=== PATIENT | male | born 1985 | race Caucasian/White ===

== ENCOUNTER 2017-06-17 11:24 | Inpatient (IN) | payer OTHER ==
[~2017-06-17 11:24] MED LIST: Ketorolac Tromethamine 30 MG/ML VIAL ONE; Lidocaine 1% PF 5 ML VIAL ONE; PHENYLEPHRINE-NS 100 MCG/ML 10 ML SYRINGE ONE; PROPOFOL 200 MG/20 ML VIAL ONE
[2017-06-17 11:59] LABS: #Eosinphils 0.2 thou/uL (0.0-0.7); #Lymphocytes 1.3 thou/uL (1.20-3.40); #Monocytes 1.1 thou/uL (0.11-0.59); #Neutrophils 10.1 thou/uL (1.40-6.50); %Basophils 0.4 % (0.0-1.0); %Eosinophils 1.4 % (0.0-10.0); %Lymphocytes 10.3 % (21.0-51.0); %Monocytes 8.8 % (0.0-10.0); %Neutrophils 79.1 % (42.0-75.0); Hemoglobin 17.4 g/dL (14.0-18.0); Mean Corpuscular HGB CONC 33.3 g/dL (32.0-36.0); Mean Corpuscular Hemoglobin 31.6 pg (27.0-31.0); Mean Corpuscular Volume 94.7 fl (80.0-94.0); Mean Platelet Volume 7.6 fL (7.4-10.4); Platelet Count 140 thou/uL (130-400); RBC Distribution Width 11.8 % (11.5-14.5); Red Blood Cell (RBC) Count 5.49 mill/uL (4.70-6.10); White Blood Cell (WBC) Count 12.8 thou/uL (4.8-10.8)
[2017-06-17] MEDS ORDERED: Ondansetron HCl/PF 4 MG/2 ML Vial ONE (12:16)
[2017-06-17] MEDS ORDERED: Morphine 4 MG/ML VIAL ONE (12:16)
[2017-06-17 12:28] LABS: ALT (SGPT) 52 U/L (8-55); AST (SGOT) 45 U/L (5-34); Albumin 4.4 g/dL (3.5-5.0); Alkaline Phosphatase 45 U/L (40-150); Anion Gap 14 mmol/L (10-20); BUN (Urea Nitrogen) 11 mg/dL (8.9-20.6); Bilirubin, Total 1.3 mg/dL (0.2-1.2); Calc. Creatinine Clearance 0 mL/min (70-130); Calcium 9.4 mg/dL (7.8-10.44); Carbon Dioxide 27 mmol/L (22-29); Chloride 102 mmol/L (98-107); Estimated GFR-MDRD 77; Glucose 119 mg/dL (70-105); Lipase 13 U/L (8-78); Potassium 4.7 mmol/L (3.5-5.1); Protein, Total 7.4 g/dL (6.0-8.3); Sodium 138 mmol/L (136-145)
[2017-06-17 12:29] LABS: Bilirubin Negative (Negative); Blood, Urine Negative (Negative); Clarity CLEAR (Clear); Glucose, Urine (Dipstick) Negative (Negative); Leukocyte Negative (Negative); Nitrite Negative (Negative); Protein, Urine (Dipstick) Negative (Neg-Trace); Specific Gravity, Urine 1.011 (1.002-1.036); pH, Urine 7.5 (5.0-9.0)
[2017-06-17] MEDS ORDERED: cefOXitin 2 GM, Syringe 1 ML in Sterile Water 10 ML SLOW IVP SCH (12:30)
[2017-06-17] MEDS ORDERED: Acetaminophen 500 MG TAB ONE (12:40)
[2017-06-17] MEDS ORDERED: Bupivacaine/Epinephrine 0.25% 30 ML VIAL ONE (13:05)
[2017-06-17] MEDS ORDERED: Midazolam HCl 2 mg/2 ml Vial ONE (13:10)
[2017-06-17] MEDS ORDERED: Fentanyl 250 MCG/5 ML VIAL ONE (13:10)
--- NOTE | 2017-06-17 13:50 | HP ---
CHIEF COMPLAINT: Right lower quadrant abdominal pain. HISTORY OF PRESENT ILLNESS: The patient is a 31-year-old male with 24-hour history of progressive ri ght lower quadrant pain associated with nausea, vomiting, chills, fever, and rigors. No previous epi sodes. PAST MEDICAL HISTORY: Otherwise, healthy. PAST SURGICAL HISTORY: None. MEDICATIONS: None. ALLERGIES: He has an allergy to PENICILLIN. SOCIAL HISTORY: He is single. He works in IT. Occasional alcohol, no tobacco. FAMILY HISTORY: Diabetes. PHYSICAL EXAMINATION: VITAL SIGNS: Pulse 109 and blood pressure 130/76. GENERAL: He is awake, having chills. HEENT: Otherwise, unremarkable. LUNGS: Clear. HEART: Regular rate and rhythm. ABDOMEN: Soft, very tender to percussion in right lower quadrant, no palpable masses. EXTREMITIES: Unremarkable. LABORATORY DATA: White count 12.9. ASSESSMENT: Acute appendicitis. PLAN: Laparoscopic appendectomy. CONSENT: I have discussed the planned procedure as well as risk of bleeding, infection, injury to narciso wel, bladder, need to open. He understands and gives informed consent.
[2017-06-17] MEDS ORDERED: HYDROcodone/Acetaminophen 10/325 mg Tablet PO PRN (14:26)
[2017-06-17] MEDS ORDERED: Promethazine HCl 25 MG/ML VIAL IM PRN ×2 (14:26→14:40)
[2017-06-17] MEDS ORDERED: hydrALAZINE 20 MG/ML VIAL SLOW IVP PRN (14:26)
[2017-06-17] MEDS ORDERED: Dextrose 5% in Water 1,000 ML IV PRN (14:26)
[2017-06-17] MEDS ORDERED: Dextrose 50% Abboject 50 ML SYRINGE SLOW IVP PRN (14:26)
[2017-06-17] MEDS ORDERED: Morphine 4 MG/ML Carpuject SLOW IVP PRN (14:26)
[2017-06-17] MEDS ORDERED: Ondansetron HCl/PF 4 MG/2 ML Vial IVP PRN ×2 (14:26→14:40)
[2017-06-17] MEDS ORDERED: Promethazine HCl 25 MG/ML VIAL SLOW IVP PRN (14:40)
[2017-06-17 15:50] VITALS: BMI 28.0
[2017-06-17] MEDS: D5 1/2 NS w/20 mEq KCL 1,000 ML IV SCH (16:17)
[2017-06-17] MEDS: HYDROcodone/Acetaminophen 10/325 mg Tablet PO PRN (16:24)
[2017-06-17] MEDS ORDERED: Levofloxacin 500 mg/D5W 100 ml Premix Bag IVPB SCH (17:00)
--- NOTE | 2017-06-17 17:02 | OP ---
PREOPERATIVE DIAGNOSIS: Acute appendicitis. SURGEON: Jeffery Valdivia M.D. PROCEDURE PERFORMED: Laparoscopic appendectomy. INDICATIONS: A 31-year-old male who presented with a 24-hour history of right lower quadrant pain, n ausea, vomiting, chills, and fever, leukocytosis. FINDINGS: Acute gangrenous appendicitis. PROCEDURE IN DETAIL: After informed consent was obtained, the patient was taken to the operating talita m and given general endotracheal anesthesia, placed in the supine position. The abdomen was prepped and draped in usual fashion. Local anesthesia infiltrated subcutaneously and deep. A subumbilical i ncision was performed. The subcu divided sharply. The fascia grasped two stay sutures of 0 Vicryl p laced to either side of midline. Midline incised. Digital palpation revealed no local adhesions. A blunt 10/12 mm trocar inserted. Pneumoperitoneum was created to a pressure of 15 mmHg. Zero degree laparoscope inserted under direct vision, two 5 mm ports placed, one suprapubic and one right latera l abdomen. The appendix was found. It was gangrenous, but there is really no purulent fluid around it. The mesoappendix was divided utilizing the LigaSure. The base of the appendix was divided utili zing the linear 45-mm white load stapler. The appendix was placed in an Endosac and removed from the abdomen through the umbilical incision and in the Endosac. The pelvis was inspected. There was no purulent fluid. The area was irrigated and irrigation fluid removed. Trocars and retractors removed . The fascia closed with interrupted 0 Vicryl suture. The skin closed with interrupted 4-0 Rapide. Dermabond applied. The patient tolerated the procedure well and was transferred to recovery in good condition. Sponge and needle count verified correct x2.
[2017-06-17] MEDS: Ketorolac Tromethamine 30 MG/ML VIAL IVP SCH (17:06)
[2017-06-17] MEDS ORDERED: Acetaminophen 1,000 MG in Premix Bag 1 BAG IVPB PRN (19:30)
[2017-06-17] MEDS ORDERED: Famotidine/PF 20 mg/2ml Vial SLOW IVP SCH (21:00)
[2017-06-17] MEDS: Famotidine 20 MG TAB PO SCH (21:26)
[2017-06-17] MEDS ORDERED: Morphine 4 MG/ML VIAL SLOW IVP PRN ×2 (21:26→21:28)
[2017-06-17] MEDS: metroNIDAZOLE 500 MG in Premix Bag 1 BAG IVPB SCH (21:26)
[2017-06-18 00:08] VITALS: TEMP 97.8
[2017-06-18] MEDS: Ketorolac Tromethamine 30 MG/ML VIAL IVP SCH ×2 (00:15→06:51)
[2017-06-18] MEDS: D5 1/2 NS w/20 mEq KCL 1,000 ML IV SCH (00:20)
[2017-06-18] MEDS: HYDROcodone/Acetaminophen 10/325 mg Tablet PO PRN ×2 (00:23→04:29)
[2017-06-18 05:10] LABS: Anion Gap 9 mmol/L (10-20); BUN (Urea Nitrogen) 16 mg/dL (8.9-20.6); Calc. Creatinine Clearance 103 mL/min (70-130); Calcium 8.7 mg/dL (7.8-10.44); Carbon Dioxide 28 mmol/L (22-29); Chloride 102 mmol/L (98-107); Estimated GFR-MDRD 62; Glucose 212 mg/dL (70-105); Potassium 4.7 mmol/L (3.5-5.1); Sodium 134 mmol/L (136-145)
[2017-06-18 05:21] LABS: #Lymphocytes 0.8 thou/uL (1.20-3.40); #Monocytes 0.8 thou/uL (0.11-0.59); #Neutrophils 11.3 thou/uL (1.40-6.50); %Basophils 0.1 % (0.0-1.0); %Eosinophils 0.1 % (0.0-10.0); %Lymphocytes 5.8 % (21.0-51.0); Hemoglobin 14.6 g/dL (14.0-18.0); Mean Corpuscular HGB CONC 34.1 g/dL (32.0-36.0); Mean Corpuscular Hemoglobin 33.8 pg (27.0-31.0); Mean Corpuscular Volume 99.2 fl (80.0-94.0); Mean Platelet Volume 8.2 fL (7.4-10.4); Platelet Count 104 thou/uL (130-400); RBC Distribution Width 11.9 % (11.5-14.5); Red Blood Cell (RBC) Count 4.32 mill/uL (4.70-6.10); White Blood Cell (WBC) Count 12.9 thou/uL (4.8-10.8)
[2017-06-18] MEDS: metroNIDAZOLE 500 MG in Premix Bag 1 BAG IVPB SCH (06:52)
[2017-06-18 07:30] VITALS: BP 107/42
[2017-06-18] MEDS: Famotidine 20 MG TAB PO SCH (07:53)
[2017-06-18] MEDS ORDERED: Enoxaparin Sodium 40 MG/0.4 ML SYRINGE SC SCH (09:00)
--- NOTE | 2017-06-18 09:21 | DIS ---
DISCHARGE DIAGNOSIS: Acute gangrenous appendicitis. PROCEDURES DURING ADMISSION: Laparoscopic appendectomy. HOSPITAL COURSE: The patient was admitted, given IV antibiotics, taken to the operating room where jayant abdullahi underwent a laparoscopic appendectomy. Postoperatively, he has done well. He is tolerating a regu lar diet. His pain is minimal and well controlled. He is discharged home on hydrocodone, Zofran. F ollow up with me in 2 weeks.
== END 2017-06-18 10:05 | disposition home or self-care (01) | DRG 343 ==
LOC: ERS 11:24 → SURG B 13:15 → SDC 14:43 → SURG B 15:36
PROVIDERS: ADMIT Surgery; ATTEND Surgery
PROC: 0DTJ4ZZ Resection of Appendix, Percutaneous Endoscopic Approach (ICD-10-PCS; principal; 2017-06-17)
DX: K35.80 Unspecified acute appendicitis (principal)
CPT/HCPCS: 36415; 36416; 80048; 80053; 81003; 83690; 85025; 88304; 96361; 96374; 96375; A4216; J0131; J0694; J1650; J1885; J1956; J2001; J2250; J2270; J2405; J2704; J3010